=== PATIENT | male | born 1995 | race Caucasian/White ===

== ENCOUNTER 2017-11-12 07:32 | Emergency (ER) | payer OTHER ==
[~2017-11-12] VITALS: Ht 170.2 cm; Wt 61.2 kg
[~2017-11-12 07:32] MED LIST: ACET325 PO; ALBU90OI6 INH; AMOCLA400S PO; AMOCLA500 PO; AMOCLA875 PO; AMOX500 PO; AMOX50SU PO; ATOM25 PO; ATOM40 PO; CEPH250SUA PO; CEPH500 PO; CODACE30 PO; CODACEE120 PO; DEXGUASY; IBUP100S PO; RXCODACESY PO; RXCODACET PO; RXONDA4ODT MM; SULTRIDS PO; SULTRIEL PO; SULTRISS PO; [UNRECOGNIZED DRUG - REMARK]
[2017-11-12] MEDS ORDERED: Norco 5-325 Ta1 EACH PO (10:14)
[2017-11-12] MEDS ORDERED: Cyclobenzaprine5 MG PO (10:14)
== END 2017-11-12 10:31 | disposition home or self-care (01) ==
LOC: ER 07:32
DX: S01.01XA Laceration without foreign body of scalp, initial encounter (principal); S61.211A Laceration without foreign body of left index finger without damage to nail, initial encounter; Z23 Encounter for immunization; F17.210 Nicotine dependence, cigarettes, uncomplicated; V86.56XA Driver of dirt bike or motor/cross bike injured in nontraffic accident, initial encounter
CPT/HCPCS: 12001; 71100; 72040; 73140; 90714; 96372; 99283; J1885

== ENCOUNTER 2019-06-29 20:27 | Emergency (ER) | payer OTHER ==
[~2019-06-29 20:27] MED LIST changes: +Cyclobenzaprine5 MG PO; +Norco 5-325 Ta1 EACH PO
[2019-06-29] MEDS ORDERED: PENVK500 PO (23:21)
== END 2019-06-29 21:15 | disposition left against medical advice (07) ==
LOC: ER 20:27
DX: Z53.21 Procedure and treatment not carried out due to patient leaving prior to being seen by health care provider (principal)

== ENCOUNTER → 2021-06-03 | Outpatient (CLI) | payer OTHER ==
[~2021-06-03] MED LIST changes: +PENVK500 PO
[2021-06-05 13:11] LABS: CHLAMYDIA BY NAA Negative (Negative); GONOCOCCUS BY NAA Negative (Negative); TRICH VAG BY NAA Negative (Negative)
[2021-06-07 08:10] LABS: HBSAG SCREEN Negative (Negative); HCV ANTIBODY <0.1 (0.0-0.9)
[2021-06-07 09:10] LABS: HIV AB/P24 AG SCREEN Non Reactive (Non Reactive)
== END ==
LOC: LAB SHORT 18:03
PROVIDERS: Registered Nurse Community Health
DX: Z11.3 Encounter for screening for infections with a predominantly sexual mode of transmission (principal); Z20.2 Contact with and (suspected) exposure to infections with a predominantly sexual mode of transmission
CPT/HCPCS: 86592; 86803; 87340; 87389; 87491; 87591; 87661

== ENCOUNTER → 2022-01-14 | Outpatient (CLI) | payer OTHER | END | disposition home or self-care (01) | LOC: LAB 12:50 → LAB SHORT 12:50 | DX: L01.00 Impetigo, unspecified (principal) | CPT/HCPCS: 87070; 87075; 87077; 87147; 87186; 87205 ==

== ENCOUNTER 2024-08-27 06:55 | Emergency (ER) | payer OTHER ==
[~2024-08-27] VITALS: Ht 167.6 cm; Wt 68.0 kg
[2024-08-27] MEDS ORDERED: Ondansetron HCl 2 MG / ML 2ML Vial ONE (07:02)
[2024-08-27] MEDS ORDERED: Naloxone HCl 0.4MG / ML 1ML Vial ONE (07:04)
[2024-08-27] MEDS ORDERED: Ondansetron HCl 2 MG / ML 2ML Vial IV ONE (07:05)
[2024-08-27] MEDS ORDERED: Naloxone HCl 1MG / ML 2ML SYR IV ONE (07:05)
[2024-08-27 07:18] VITALS: BP 128/89
== END 2024-08-27 07:30 | disposition home or self-care (01) ==
LOC: ER 06:55
DX: S96.911A Strain of unspecified muscle and tendon at ankle and foot level, right foot, initial encounter (principal); F11.90 Opioid use, unspecified, uncomplicated; F17.210 Nicotine dependence, cigarettes, uncomplicated; X50.0XXA Overexertion from strenuous movement or load, initial encounter; Y93.39 Activity, other involving climbing, rappelling and jumping off
CPT/HCPCS: 73610; 96374; 96375; 99283-25; J2310; J2405